=== PATIENT | female | born 1990 | race Two or more races ===

== ENCOUNTER 2016-04-17 12:01 | Emergency (ER) | payer OTHER ==
[~2016-04-17] VITALS: Ht 154.9 cm; Wt 101.2 kg
[2016-04-17] MEDS ORDERED: ZOFR8TAB4 PO (12:25)
[2016-04-17] MEDS ORDERED: PRENCHW PO (12:25)
[2016-04-17] MEDS ORDERED: PROMETHAZINE INJ 25 MG/ML VIAL (J2550) IV ONE (13:30)
[2016-04-17] MEDS ORDERED: MVI -ADULT INJECTION 10 ML VIAL IV ONE (13:30)
[2016-04-17] MEDS ORDERED: MULTIVITAMIN -ADULT INJECTION 10 ML in NS 1,000 ML IV SCH (14:00)
[2016-04-17] MEDS ORDERED: DICL10TA PO (16:01)
[2016-04-17 18:02] VITALS: BP 120/76
== END 2016-04-17 18:36 | disposition home or self-care (01) ==
LOC: M ED 13:37
DX: O21.9 Vomiting of pregnancy, unspecified (principal); Z3A.11 11 weeks gestation of pregnancy

== ENCOUNTER 2016-11-01 02:57 | Inpatient (IN) | payer OTHER ==
[2016-11-01] VITALS (17 sets, daily range): BP systolic 117–149; BP diastolic 75–91
[~2016-11-01] VITALS: Ht 154.9 cm; Wt 109.0 kg
[~2016-11-01 02:57] MED LIST: DICL10TA PO; PRENCHW PO; ZOFR8TAB4 PO
[2016-11-01] MEDS ORDERED: OXYTOCIN 30 UNITS IN 0.9% NaCl 500ML IV BAG (J2590) As Ordered ONE ×2 (04:14→06:16)
[2016-11-01] MEDS ORDERED: LR 1,000 ML IV SCH (04:14)
[2016-11-01] MEDS ORDERED: OXYTOCIN DRIP 30 UNITS in APPROPRIATE DILUENT 1 EA IV SCH (04:16)
[2016-11-01] MEDS ORDERED: METHYLERGONOVINE MALEATE 0.2 MG TAB PO PRN (04:30)
[2016-11-01] MEDS ORDERED: ANUSOL HC CREAM 30GM TOP PRN (04:30)
[2016-11-01] MEDS ORDERED: IBUPROFEN 800 MG TAB PO PRN (04:30)
[2016-11-01] MEDS ORDERED: OXYTOCIN INJ 10 UNITS/ML VIAL (J2590) IV ONE (04:30)
[2016-11-01] MEDS ORDERED: MEASLES,MUMPS,RUBELLA VACCINE INJ (MMR-II) (90707) SC SCH (04:30)
[2016-11-01] MEDS ORDERED: ACETAMINOPHEN 500 MG TAB PO PRN (04:30)
[2016-11-01] MEDS ORDERED: DIBUCAINE 1% OINTMENT 30GM TOP PRN (04:30)
[2016-11-01] MEDS ORDERED: DOCUSATE SODIUM 100 MG CAP PO PRN (04:30)
[2016-11-01] MEDS ORDERED: RHOGAM 300 MCG (1500 IU) INJ (J2790) IM SCH (04:30)
[2016-11-01] MEDS ORDERED: MOM 30ML SUSPENSION UDC PO PRN (04:30)
[2016-11-01] MEDS ORDERED: METHYLERGONOVINE MALEATE 0.2 MG/ML VIAL (J2210) As Ordered ONE (04:55)
[2016-11-01 05:11] LABS: CORD GAS ABE A -6.2; CORD GAS HCO3 A 23.1 MEQ/L; CORD GAS O2 SAT A < 15.0 %; CORD GAS PH A 7.182 UNITS; CORD GAS PO2 A 14.4 mmHg
[2016-11-01 05:12] LABS: CORD GAS ABE V -5.9; CORD GAS O2 SAT V 53.7 %; CORD GAS PCO2 V 40.5 mmHg; CORD GAS PH V 7.311 UNITS; CORD GAS PO2 V 25.7 mmHg; CORD GAS SBC V 18.7 MEQ/L; CORD GAS TCO2 V 21.2 MEQ/L
[2016-11-01 05:13] LABS: MEAN CORPUSCULAR HGB CONC 33.2 g/dl (32.0-36.5); MEAN CORPUSCULAR VOLUME 84.3 fl (80.0-96.0); RED CELL DISTRIBUTION WIDTH 13.3 % (11.5-14.5); WHITE BLOOD COUNT 7.2 K/mm3 (4.0-10.0)
[2016-11-01] MEDS ORDERED: METHYLERGONOVINE MALEATE 0.2 MG/ML VIAL (J2210) IM ONE (05:15)
[2016-11-01] MEDS: OXYTOCIN DRIP 30 UNITS in APPROPRIATE DILUENT 1 EA IV SCH ×5 (06:25→22:30)
[2016-11-01] MEDS ORDERED: OXYTOCIN INJ 10 UNITS/ML VIAL (J2590) IV SCH (08:15)
--- NOTE | 2016-11-01 09:01 | HPE ---
DATE OF ADMISSION: 11/02/2016 This lady is a 26-year-old, 5, para 4, last menstrual period (LMP) 01/28/2016, estimated date of confinement (EDC) 11/02/2016 at 39 and 6 weeks of gestation with spontaneous rupture of membranes at 7 cm in active labor. PAST HISTORY: 2006, at 36 and 5, spontaneous vaginal delivery, 6 pounds 3 ounces, induction of labor; the baby was in the intensive care unit (NICU). 2010, at 41 and 2 weeks, spontaneous delivery, 8 pounds 7 ounces, spontaneous rupture of membranes, augmented with Pitocin. 2011, at 41 weeks, spontaneous vaginal delivery, 8 pound 5 ounce female, induction of labor. 2013, at 39 weeks, spontaneous vaginal delivery, 8 pound 1 ounce female, induction of labor. 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 Her body mass index (BMI) is 42.13. LABORATORIES: O+, HIV negative, hepatitis negative, rapid plasma reagin (RPR) negative, rubella immune. Varicella by history. Pap normal. Urine negative. Gonorrhea and chlamydia negative. 1-hour glucose 124. Group B streptococcus (GBS) is negative. Blood pressure 136/83, respirations 20, pulse 71, temperature 97.8. We have a patient in active labor. Symphysis fundus height is 40, vertex, occipitoanterior (OA), fully dilated, and precipitating delivery. The rest the examination is unremarkable. 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 Neck: Full range of motions. Distal pulses symmetric. No evidence of deep venous thrombosis (DVT), pulmonary embolism (PE), or superficial phlebitis. No wheezes or rhonchi. No costovertebral angle (CVA) tenderness. Uterus is appropriate. Symphysis fundus height is 40, vertex. Four quadrant bowel sounds are noted. She has no rashes, lesions, or pruritus. No arthralgia or myalgia. No complaints of cough, wheeze, shortness of breath, or dyspnea on exertion. No chest pain. Not bleeding. Neuro complete. No incontinency, urgency, or frequency. No nausea, vomiting, diarrhea, or constipation. No diabetic issues. The only issue is her bilateral optic atrophy and requires someone to drive her around. GYNECOLOGIC, PAST MEDICAL AND SURGICAL HISTORY: Unremarkable. FAMILY HISTORY: Noncontributory. She does not smoke, drink, abuse drugs. No domestic violence. 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 In summary, we have a term gestation in active labor precipitating delivery. Edited 11/01/2016 aml
[2016-11-01] MEDS: PRENATAL VITAMINS CHEWABLE TABLET PO SCH (09:35)
--- NOTE | 2016-11-01 17:14 | DN ---
DATE: 11/01/2016 DELIVERY NOTE: This lady came precipitately delivered over an intact perineum a live male weighing 3680 grams, 8 pounds 2 ounces, scores of 9 and 9 at one and five minutes respectfully. Arterial and venous pH was performed. Placenta delivered spontaneously thereafter. Three-vessel cord, membranes and tissues intact. Uterus contracted well on the Pitocin intravenous (IV) given at 125 mL/hour. The patient and baby tolerated the procedure well.
[2016-11-02] MEDS: OXYTOCIN DRIP 30 UNITS in APPROPRIATE DILUENT 1 EA IV SCH ×3 (02:30→10:30)
[2016-11-02 05:42] VITALS: BP 106/66
[2016-11-02] MEDS: PRENATAL VITAMINS CHEWABLE TABLET PO SCH (08:14)
== END 2016-11-02 13:10 | disposition home or self-care (01) | DRG 775 ==
LOC: M LDO 02:57 → M LDI 03:34 → M OBS 09:02
PROVIDERS: ADMIT Obstetrics & Gynecology; ATTEND Obstetrics & Gynecology
PROC: 10E0XZZ Delivery of Products of Conception, External Approach (ICD-10-PCS; principal; 2016-11-01)
DX: O62.3 Precipitate labor (principal); Z3A.39 39 weeks gestation of pregnancy; Z37.0 Single live birth